=== PATIENT | female | born 2000 | race Hispanic/Latino ===

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

== ENCOUNTER 2022-07-13 15:22 | Observation (INO) | payer MEDICAID, OTHER ==
[~2022-07-13] VITALS: Ht 152.4 cm; Wt 65.8 kg
[2022-07-13] MEDS ORDERED: 0.9%NACL 1000ML 1,000 ML IV ONE (16:00)
[2022-07-13] MEDS ORDERED: ACETAMINOPHEN 500 MG TABLET PO ONE (16:00)
[2022-07-13 16:12] LABS: BASOPHILS % (AUTO) 0.2 % (0.0-5.0); EOSINOPHILS % (AUTO) 0.1 % (0.0-8.0); HEMATOCRIT 30.8 % (36-48); LYMPHOCYTES % (AUTO) 7.6 % (21.0-51.0); MEAN CORPUSCULAR HEMOGLOBIN 29.4 pg (27.0-33.0); MEAN CORPUSCULAR HGB CONC 34.7 g/dL (32.0-36.0); MEAN CORPUSCULAR VOLUME 84.6 fL (80-100); MONOCYTES % (AUTO) 7.8 % (3.0-13.0); NEUTROPHILS % (AUTO) 83.5 % (40.0-77.0); PLATELET COUNT (AUTO) 154 K/uL (130-400); RED BLOOD CELL COUNT(AUTO) 3.64 MIL/uL (4.00-5.50); RED CELL DISTRIBUTION WIDTH 14.5 % (11.0-15.5); WHITE BLOOD COUNT (AUTO) 13.1 K/uL (4.8-10.8)
[2022-07-13 16:13] LABS: APPEARANCE,URINE TURBID (CLEAR); BILIRUBIN,URINE NEGATIVE (NEGATIVE); COLOR,URINE YELLOW (YELLOW); GLUCOSE, URINE (UA) NEGATIVE (NEGATIVE); KETONES,URINE 20 mg/dL (NEGATIVE); LEUKOCYTE ESTERASE ,URINE 500 Leu/uL (NEGATIVE); NITRATE,URINE NEGATIVE (NEGATIVE); OCCULT BLOOD,URINE LARGE (NEGATIVE); PH,URINE 6.5 (5.0-8.0); PROTEIN,URINE 70 mg/dL (NEGATIVE)
[2022-07-13 16:29] LABS: ALBUMIN 2.9 g/dL (3.5-5.0); CREATININE 0.6 mg/dL (0.5-1.5); TOTAL PROTEIN, SERUM 7.4 g/dL (6.0-8.3)
[2022-07-13 16:36] LABS: APPEARANCE,URINE CLEAR (CLEAR); BILIRUBIN,URINE NEGATIVE (NEGATIVE); COLOR,URINE LIGHT-YELLOW (YELLOW); GLUCOSE, URINE (UA) NEGATIVE (NEGATIVE); KETONES,URINE NEGATIVE (NEGATIVE); LEUKOCYTE ESTERASE ,URINE NEGATIVE Leu/uL (NEGATIVE); NITRATE,URINE NEGATIVE (NEGATIVE); OCCULT BLOOD,URINE NEGATIVE (NEGATIVE); PH,URINE 6.5 (5.0-8.0); PROTEIN,URINE NEGATIVE (NEGATIVE); UROBILINOGEN,URINE 0.2 mg/dL (0.2-1.0)
[2022-07-13 16:37] LABS: POTASSIUM 2.9 mmol/L (3.5-5.1)
[2022-07-13 16:40] LABS: BACTERIA,URINE RARE /HPF (None Seen); MUCUS,URINE MOD LPF (None Seen); RBC,URINE >100 /HPF (0-1); SQUAMOUS EPITHELIAL CELL,UR MOD /HPF (0-2); WBC,URINE >100 /HPF (0-1); YEAST,URINE BUDDING RARE /HPF (None Seen)
[2022-07-13 16:48] LABS: RBC,URINE 0-1 /HPF (0-1); SQUAMOUS EPITHELIAL CELL,UR RARE /HPF (0-2)
[2022-07-13] MEDS ORDERED: CEFTRIAXONE 1G VIAL IVP ONE (17:00)
[2022-07-13] MEDS ORDERED: POTASSIUM BICARB/CIT AC 25 MEQ TABLET.EFF PO ONE (17:00)
[2022-07-13] MEDS ORDERED: POTASSIUM BICARB/CIT AC 25 MEQ TABLET.EFF ONE (17:03)
[2022-07-13] MEDS ORDERED: CEFTRIAXONE 1G VIAL ONE (17:03)
[2022-07-13] MEDS ORDERED: GENTAMICIN 80 MG/NS 100 ML PB 100 ML IV SCH (18:00)
[2022-07-13] MEDS ORDERED: LIDOCAINE PF 100MG/5ML (2%) SYRINGE 5ML ONE (18:26)
[2022-07-13] MEDS ORDERED: SUCCINYLCHOLINE CHLORIDE 20 MG/ML 10 ML VIAL ONE (18:26)
[2022-07-13] MEDS ORDERED: FENTANYL CITRATE PF 50 MCG/1 ML 2ML VIAL ONE ×2 (18:27→19:24)
[2022-07-13] MEDS ORDERED: MIDAZOLAM HCL 1 MG/ML 2ML VIAL ONE (18:27)
[2022-07-13] MEDS ORDERED: GLYCOPYRROLATE 1 MG/5 ML SYRINGE ONE (18:27)
[2022-07-13] MEDS ORDERED: ONDANSETRON 4MG INJ ONE (18:27)
[2022-07-13] MEDS ORDERED: DEXAMETHASONE SOD PHOSPHATE 10MG/ML 1ML VIAL ONE (18:27)
[2022-07-13] MEDS ORDERED: NEOSTIGMINE 5MG/5ML SYR IV ONE (18:27)
[2022-07-13] MEDS ORDERED: PROPOFOL 10 MG/ML 20ML VIAL IV ONE (18:27)
[2022-07-13] MEDS ORDERED: AMPICILLIN 1GM VIAL IV SCH (18:30)
[2022-07-13] MEDS: DEXTROSE 5 %-0.45 % NACL 1,000 ML IV SCH (18:30)
[2022-07-13] MEDS ORDERED: GENTAMICIN SULFATE/PF 10 MG/1 ML 2ML IV SCH (18:30)
[2022-07-13] MEDS ORDERED: CEFAZOLIN SODIUM 1 GM VIAL ONE (19:07)
[2022-07-13] MEDS ORDERED: OXYTOCIN 10 USP UNITS/ML ONE (19:32)
[2022-07-13] MEDS ORDERED: PHENYLEPHRINE HCL 10 MG/ML 1ML VIAL IV ONE (19:39)
[2022-07-13] MEDS ORDERED: AMPICILLIN 1GM+NS 50ML 50 ML IV SCH (20:00)
[2022-07-13] MEDS ORDERED: ACET325O5 PO (20:13)
[2022-07-13] MEDS ORDERED: PREN1TAB80 PO (20:13)
[2022-07-13] MEDS ORDERED: LACTATED RINGERS 1000ML IV PRN (20:30)
[2022-07-13] MEDS ORDERED: LACTATED RINGERS 1000ML 1,000 ML IV SCH (20:30)
[2022-07-13] MEDS ORDERED: MEPERIDINE-PF 25 MG/ML SYG ONE (20:36)
[2022-07-13] MEDS ORDERED: MEPERIDINE-PF 25 MG/ML SYG IVP PRN (21:30)
[2022-07-13] MEDS ORDERED: NALOXONE HCL 0.4 MG/1 ML ML IVP PRN (21:30)
[2022-07-13] MEDS ORDERED: IPRATROPIUM/ALBUTEROL SULFATE 3 ML SOLUTION IH PRN (21:30)
[2022-07-13] MEDS ORDERED: ONDANSETRON 4MG INJ IVP PRN (21:30)
[2022-07-13] MEDS ORDERED: RACEPINEPHRINE HCL 2.25% 0.5 ML NEB SOLN NEB PRN (21:30)
[2022-07-13] MEDS ORDERED: PROMETHAZINE HCL 25 MG/ML 1ML AMPULE IM PRN (21:30)
[2022-07-13] MEDS ORDERED: METOCLOPRAMIDE 10 MG/2 ML VIAL IVP PRN (21:30)
[2022-07-13] MEDS ORDERED: CALDOLOR 800MG+NS 250ML 250 ML IV SCH (22:00)
[2022-07-14] VITALS: BP 123/75
[2022-07-14] MEDS ORDERED: CEFAZOLIN SODIUM 2 GM VIAL IVP SCH (03:00)
[2022-07-14] MEDS: DEXTROSE 5 %-0.45 % NACL 1,000 ML IV SCH (03:01)
[2022-07-14] MEDS ORDERED: ACETAMINOPHEN 325 MG TAB ONE ×2 (03:07)
[2022-07-14 03:15] VITALS: BP 111/63
[2022-07-14] MEDS ORDERED: ACETAMINOPHEN 325 MG TAB PO PRN (03:30)
[2022-07-14 06:19] LABS: BASOPHILS % (AUTO) 0.1 % (0.0-5.0); HEMATOCRIT 26.2 % (36-48); LYMPHOCYTES % (AUTO) 8.5 % (21.0-51.0); MEAN CORPUSCULAR HEMOGLOBIN 29.5 pg (27.0-33.0); MEAN CORPUSCULAR VOLUME 86.8 fL (80-100); MONOCYTES % (AUTO) 4.2 % (3.0-13.0); NEUTROPHILS % (AUTO) 86.4 % (40.0-77.0); PLATELET COUNT (AUTO) 166 K/uL (130-400); RED BLOOD CELL COUNT(AUTO) 3.02 MIL/uL (4.00-5.50); RED CELL DISTRIBUTION WIDTH 14.8 % (11.0-15.5)
== END 2022-07-14 07:15 | disposition home or self-care (01) ==
LOC: EDH 15:22 → LDH 15:23 → UNDOADMOB 18:12 → LDH 18:12
PROVIDERS: ADMIT Obstetrics & Gynecology; ATTEND Obstetrics & Gynecology
DX: O36.4XX0 Maternal care for intrauterine death, not applicable or unspecified (principal); Z20.822 Contact with and (suspected) exposure to COVID-19; O46.91 Antepartum hemorrhage, unspecified, first trimester; O99.12 Other diseases of the blood and blood-forming organs and certain disorders involving the immune mechanism complicating childbirth; D72.829 Elevated white blood cell count, unspecified; O26.891 Other specified pregnancy related conditions, first trimester; R51.9 Headache, unspecified; R50.9 Fever, unspecified; O99.891 Other specified diseases and conditions complicating pregnancy; M54.9 Dorsalgia, unspecified; Z98.891 History of uterine scar from previous surgery; Z3A.10 10 weeks gestation of pregnancy
CPT/HCPCS: 59820; 96374; 99284; 80053; 84702; 85025 ×2; 86850; 86900; 86901; 87040 ×2; 87077; 87088; 87186; 87804 ×2; 83605; 81001 ×2; 81025; 36415 ×2; 87635; 76801; 96375; 84132; G0378 ×16; C9803; J3010 ×2; J0690 ×3; J3490; J1100; J2710; J0330; J2001; J0696; J2250; J2590; J2704; J2405; J2175; J2370; J7120; J0290; J1580

== ENCOUNTER 2024-10-28 22:31 | Observation (INO) | payer BC, MEDICAID ==
[~2024-10-28] VITALS: Ht 152.4 cm; Wt 69.4 kg
[~2024-10-28 22:31] MED LIST: ACET325O5 PO; PREN1TAB80 PO
[2024-10-28] MEDS: 0.9%NACL 1000ML 1,000 ML IV SCH (22:50)
[2024-10-28] MEDS: ondanSETRON 4MG INJ ONE (22:50)
[2024-10-28] MEDS: FAMOTIDINE 20MG VIAL IV ONE ×2 (22:50)
[2024-10-28] MEDS: ondanSETRON 4MG INJ IVP ONE (22:50)
[2024-10-28 22:56] LABS: BASOPHILS # (AUTO) 0.06 K/uL (0.00-0.20); BASOPHILS % (AUTO) 0.3 % (0.0-5.0); EOSINOPHILS % (AUTO) 1.1 % (0.0-8.0); HEMATOCRIT 37.8 % (36-48); IMMATURE GRANULOCYTE ABSOLUTE 0.11 K/uL (0-1); LYMPHOCYTES # (AUTO) 1.2 K/uL (1.0-4.8); LYMPHOCYTES % (AUTO) 6.5 % (21.0-51.0); MEAN CORPUSCULAR HEMOGLOBIN 31.5 pg (27.0-33.0); MEAN CORPUSCULAR HGB CONC 33.1 g/dL (32.0-36.0); MEAN CORPUSCULAR VOLUME 95.2 fL (79-99); MONOCYTES # (AUTO) 0.7 K/uL (0.1-1.0); MONOCYTES % (AUTO) 3.9 % (3.0-13.0); NEUTROPHILS # (AUTO) 16.6 K/uL (1.8-7.7); NEUTROPHILS % (AUTO) 87.6 % (40.0-77.0); PLATELET COUNT (AUTO) 295 K/uL (130-400); RED BLOOD CELL COUNT(AUTO) 3.97 MIL/uL (4.00-5.50); RED CELL DISTRIBUTION WIDTH 12.9 % (11.0-15.5); WHITE BLOOD COUNT (AUTO) 18.9 K/uL (4.8-10.8)
[2024-10-28 23:07] LABS: CARBON DIOXIDE 25 mmol/L (21-32); CHLORIDE 101 mmol/L (101-111); CREATININE 0.7 mg/dL (0.5-1.0); GLOMERULAR FILTR. RATE CALC 125 mL/min (>90); GLUCOSE,RANDOM 109 mg/dL (70-105); POTASSIUM 3.2 mmol/L (3.5-5.1); SODIUM SERUM 138 mmol/L (136-145); UREA NITROGEN, BLOOD 8 mg/dL (7-18)
[2024-10-28 23:18] LABS: ALANINE AMINOTRANSFERASE 23 U/L (12-78); ALBUMIN 3.8 g/dL (3.5-5.0); ASPARTATE AMINOTRANSFERASE 13 U/L (10-37); BILIRUBIN,DIRECT < 0.1 mg/dL (0.0-0.3); BILIRUBIN,TOTAL 0.2 mg/dL (0.2-1.0); HCG,QUANTITATIVE 1 mIU/mL (0-5); TOTAL PROTEIN, SERUM 7.6 g/dL (6.0-8.3)
[2024-10-28] MEDS ORDERED: IOHEXOL-350 75 ML VIAL IV ONE (23:50)
[2024-10-28] MEDS: morPHINE 2 MG SYG IVP ONE (23:51)
[2024-10-28] MEDS: HALOPERIDOL INJ 5 MG/ML VIAL IV ONE (23:51)
[2024-10-29] VITALS (24 sets, daily range): BP systolic 105–130; BP diastolic 55–85; PULSE 81–122; RESP 15–20; TEMP 97.4–98.9; O2SAT 98–99
--- NOTE | 2024-10-29 00:50 | HMCIMG ---
CT ABDOMEN/PELVIS W/CONTRAST HISTORY: Abdominal pain COMPARISON: None TECHNIQUE: Multiple sequential axial images of the abdomen and pelvis were obtained from the dome of the diaphragm through symphysis pubis. Patient was not given contrast through intravenous route. Oral contrast was not given. FINDINGS: No pleural effusion is seen bilaterally. There is no evidence of parenchymal disease or pulmonary nodule of the visualized lower lungs. Degenerative changes of the thoracolumbar spine are present. The heart is not enlarged. The liver, spleen, adrenal glands and pancreas are unremarkable. There is no evidence of hydronephrosis bilaterally. No evidence of renal stone is seen. Fecal material is seen in the colon. There are normal size retroperitoneal and mesenteric lymph nodes. No ascites is seen. Appendix is dilated measuring 10 mm. Acute appendicitis cannot be excluded. Clinical correlation is recommended. Pelvic sidewalls are symmetric bilaterally. Bladder is well distended without wall thickening. IMPRESSION: 1. Appendix is dilated measuring 10 mm. Acute appendicitis cannot be excluded. Clinical correlation is recommended. CT was performed with one or more following dose reduction techniques: automated exposure control, adjustment of the mA and kv according to patient's size, or use of a iterative reconstruction technique.
--- NOTE | 2024-10-29 00:56 | ERN ---
General Chief Complaint: Abdominal Pain Stated Complaint: INTERMITTENT UPPER ABD X 2 WEEKS,N/V TODAY Time Seen by MD: 22:45 Time Seen by Midlevel: 22:45 Source: patient History of Present Illness Initial Comments Patient is a 24-year-old female with no significant past medical history presenting to the emergency department with diffuse abdominal pain that has been progressively worsening over the last two days. Associated symptoms include nausea and vomiting. No other symptoms reported. Denies any drug and alcohol use. Allergies: Coded Allergies: No Known Drug Allergies (Unverified Allergy, Unknown, 07/13/22) Home Meds Reported Medications Vits W-Ca,Fe,FA(<1Mg) ( Vitamins) 1 Each Tablet, 1 EACH PO DAILY, TAB 07/13/22 Acetaminophen (Acetaminophen) 325 Mg/10.15 Ml Oral.susp, 325 MG PO AD PRN for ABDOMINAL PAIN, ML 07/13/22 Past Medical History Past Medical History: No Pertinent History Past Surgical History: Female( History) : 3 Para: 1 ROS Dictation CONSTITUTIONAL: Negative except for HPI HEAD/FACE: Negative except for HPI EENT: Negative except for HPI RESPIRATORY: Negative except for HPI GASTROINTESTINAL/ABDOMINAL: Negative except for HPI GENITOURINARY: Negative except for HPI MUSCULOSKELETAL: Negative except for HPI INTEGUMENTARY: Negative except for HPI NEUROLOGICAL/PSYCH: Negative except for HPI HEMATOLOGIC/LYMPHATIC: Negative except for HPI All Systems Negative, Except as noted above. 13 point review of systems assessed and all negative except for above. Physical Exam Physical Exam Dictation Vital Signs reviewed General Appearance: Alert, oriented x 3, mild distress, actively vomiting Head and Face: non-traumatic. Eyes: PERRL, pink conjunctivas, eyelid no trauma, anterior chamber with arcus senilis. Ears: Pinnas intact and no signs of trauma or erythema ear canals clear and no discharge TM no erythema Nose: No discharge, no bleeding. Oropharynx: Mouth normal, tongue pink, pharynx clear,no erythema, tonsils no exudates, no abscesses noted, mucous membrane moist Neck: Supple, non-tender, no thyromegaly, no masses, no JVD, no bruits Breast:Deferred Chest:No tenderness, no crepitus, no paradoxical movement, no retractions Lungs:Clear, well-ventilated, symmetric, no rales, no wheezing, no rhonchi, no stridor, good breath sounds bilaterally Heart: Tachycardic, regular rhythm, no murmur, no gallops Vascular: no peripheral edema, Abdomen: Soft, positive bowel sounds, nondistended, no guarding, Right lower quadrant abdominal tenderness, no rebound, no masses no hepatomegaly, no splenomegaly, no Anne's sign, no hernias. Rectal: Deferred Genital: Deferred Neurological: Normal speech, motor function intact, sensory function intact Musculoskeletal: Neck nontender, full range of motion, back nontender, full range of motion, Extremities: nontender, full range of motion Skin: Color pink, dry, no turgor, no rash, no lacerations, no abrasions, no contusions. Lymphatic: Deferred Results Laboratory and Microbiology Lab and Micro Result Laboratory Tests Test 10/28/24 22:48 White Blood Count 18.9 K/uL (4.8-10.8) H Red Blood Count 3.97 MIL/uL (4.00-5.50) L Hemoglobin 12.5 g/dL (12.0-16.0) Hematocrit 37.8 % (36-48) Mean Corpuscular Volume 95.2 fL (79-99) Mean Corpuscular Hemoglobin 31.5 pg (27.0-33.0) Mean Corpuscular Hemoglobin Concent 33.1 g/dL (32.0-36.0) Red Cell Distribution Width 12.9 % (11.0-15.5) Platelet Count 295 K/uL (130-400) Mean Platelet Volume 10.1 fL (7.5-10.5) Immature Granulocyte % (Auto) 0.6 % (0-1) Neutrophils (%) (Auto) 87.6 % (40.0-77.0) H Lymphocytes (%) (Auto) 6.5 % (21.0-51.0) L Monocytes (%) (Auto) 3.9 % (3.0-13.0) Eosinophils (%) (Auto) 1.1 % (0.0-8.0) Basophils (%) (Auto) 0.3 % (0.0-5.0) Neutrophils # (Auto) 16.6 K/uL (1.8-7.7) H Lymphocytes # (Auto) 1.2 K/uL (1.0-4.8) Monocytes # (Auto) 0.7 K/uL (0.1-1.0) Eosinophils # (Auto) 0.20 K/uL (0.00-0.70) Basophils # (Auto) 0.06 K/uL (0.00-0.20) Absolute Immature Granulocyte (auto 0.11 K/uL (0-1) Nucleated Red Blood Cells 0.0 % (0.0-0.19) White Cell Morphology Comment See comments Sodium Level 138 mmol/L (136-145) Potassium Level 3.2 mmol/L (3.5-5.1) L Chloride Level 101 mmol/L (101-111) Carbon Dioxide Level 25 mmol/L (21-32) Blood Urea Nitrogen 8 mg/dL (7-18) Creatinine 0.7 mg/dL (0.5-1.0) Glomerular Filtration Rate Calc 125 mL/min (>90) Random Glucose 109 mg/dL (70-105) H Total Calcium 8.8 mg/dL (8.5-10.1) Total Bilirubin 0.2 mg/dL (0.2-1.0) Direct Bilirubin < 0.1 mg/dL (0.0-0.3) Aspartate Amino Transf (AST/SGOT) 13 U/L (10-37) Alanine Aminotransferase (ALT/SGPT) 23 U/L (12-78) Alkaline Phosphatase 73 U/L (50-136) Total Protein 7.6 g/dL (6.0-8.3) Albumin 3.8 g/dL (3.5-5.0) Lipase 29 U/L (16-77) Human Chorionic Gonadotropin, Quant 1 mIU/mL (0-5) Labs Reviewed?: Yes MDM MDM: Differential diagnosis: Acute appendicitis, pancreatitis, acute cholecystitis, Rationale: Tests considered and ordered secondary to shared decision making include: Previous outside records reviewed: Old ER visits. Risk of complication and/or morbidity or mortality of patient management: None Medications-Per medication reconciliation Need for hospitalization: Patient does meet criteria for hospitalization. Need for emergency major/minor surgery: No There are no social concerns with this patient. Prescription drug management Prescriptions will include symptomatic care Patient's prior external medical records from other ER visits were reviewed by me as indicated. Prior testing and results from previous visits were reviewed. Prior tests were taken into account with medical decision making and resource utilization, independent historian/historians were used to obtain complete medical history. I independently interpreted the test that were performed, results were reviewed by me and considered findings on radiology if ordered. Medical management and examination interpretation discussions were had by me with other qualified healthcare professionals as indicated for the patient's care. ED Course Orders Procedure Category Date Status Time Cbc With Differential LAB 10/28/24 Complete 22:42 Basic Metabolic Panel LAB 10/28/24 Complete 22:42 Lipase LAB 10/28/24 Complete 22:42 Hcg,Quantitative LAB 10/28/24 Complete 22:42 Urinalysis Profile LAB 10/28/24 Logged 22:42 Ondansetron 4mg Inj PHA 10/28/24 Complete (Zofran 4mg Inj) 23:00 Hepatic Function Panel LAB 10/28/24 Complete 22:42 Drug Screen Urine LAB 10/28/24 Logged 22:42 0.9%Nacl 1000ml (Ns PHA 10/28/24 In Process 1000ml) 23:00 Famotidine 20mg Vial PHA 10/28/24 Complete (Pepcid 20mg Vial) 23:00 Ondansetron 4mg Inj PHA 10/28/24 Complete (Zofran 4mg Inj) 22:44 Famotidine 20mg Vial PHA 10/28/24 Complete (Pepcid 20mg Vial) 22:45 Ct Abdomen/Pelvis CT 10/28/24 Resulted W/Contrast 23:36 Morphine 2mg Syg PHA 10/29/24 Complete (Morphine 2mg Syg) 00:00 Haloperidol Inj PHA 10/29/24 Complete (Haldol Inj) 00:00 Iohexol (Omnipaque) PHA 10/28/24 Complete 23:50 Hydromorphone 0.5mg PHA 10/29/24 Verified Syg (Dilaudid 0.5mg 01:00 Zosyn 3.375gm+Ns 50ml PHA 10/29/24 Verified (Zosyn 3.375gm+Ns 01:00 Current Medications Medications (Trade) Dose Ordered Sig/Trent Route PRN Reason Start Time Stop Time Status Last Admin Dose Admin Famotidine (Pepcid 20mg Vial) 20 mg ONCE ONCE IV 10/28/24 23:00 10/28/24 23:01 DC 10/28/24 22:50 Famotidine (Pepcid 20mg Vial) 20 mg STK-MED ONCE IV 10/28/24 22:45 10/28/24 22:45 DC Haloperidol Lactate (Haldol Inj) 5 mg ONCE ONCE IV 10/29/24 00:00 10/29/24 00:01 DC 10/28/24 23:51 Iohexol (Omnipaque) 75 ml STK-MED ONCE IV 10/28/24 23:50 10/28/24 23:50 DC Morphine Sulfate (morPHINE 2MG SYG) 2 mg ONCE ONCE IVP 10/29/24 00:00 10/29/24 00:01 DC 10/28/24 23:51 Ondansetron HCl (zoFRAN 4MG INJ) 4 mg ONCE ONCE IVP 10/28/24 23:00 10/28/24 23:01 DC 10/28/24 22:50 Ondansetron HCl (zoFRAN 4MG INJ) 4 mg STK-MED ONCE .ROUTE 10/28/24 22:44 10/28/24 22:45 DC Sodium Chloride 1,000 ml @ 0 mls/hr Q0M IV 10/28/24 23:00 11/27/24 22:59 10/28/24 22:50 Vital Signs Date Time Temp Pulse Resp B/P (MAP) Pulse Ox O2 Delivery O2 Flow Rate FiO2 10/28/24 23:44 98.8 98 20 127/84 99 Room Air* 0 21 10/28/24 22:34 99.3 104 18 133/89 99 Room Air 0 10/28/24 22:32 99.3 104 18 133/89 99 Room Air* [address] [address] IMAGING REPORT Signed PATIENT: JASIEL ORNELAS MR#: [id number] : 2000 SEX: F AGE: 24 LOCATION: [facility] ORDER 36 STATUS: REG ER REPORT#: [id number] SERVICE 35 REASON: mid epigastric abd pain/leukocytosis/intractable vomiting ORDERING PHYSICIAN: TAMIA HOOD PROCEDURE: ABD PEL W - CT ABDOMEN/PELVIS W/CONTRAST CT ABDOMEN/PELVIS W/CONTRAST HISTORY: Abdominal pain COMPARISON: None TECHNIQUE: Multiple sequential axial images of the abdomen and pelvis were obtained from the dome of the diaphragm through symphysis pubis. Patient was not given contrast through intravenous route. Oral contrast was not given. FINDINGS: No pleural effusion is seen bilaterally. There is no evidence of parenchymal disease or pulmonary nodule of the visualized lower lungs. Degenerative changes of the thoracolumbar spine are present. The heart is not enlarged. The liver, spleen, adrenal glands and pancreas are unremarkable. There is no evidence of hydronephrosis bilaterally. No evidence of renal stone is seen. Fecal material is seen in the colon. There are normal size retroperitoneal and mesenteric lymph nodes. No ascites is seen. Appendix is dilated measuring 10 mm. Acute appendicitis cannot be excluded. Clinical correlation is recommended. Pelvic sidewalls are symmetric bilaterally. Bladder is well distended without wall thickening. IMPRESSION: 1. Appendix is dilated measuring 10 mm. Acute appendicitis cannot be excluded. Clinical correlation is recommended. CT was performed with one or more following dose reduction techniques: automated exposure control, adjustment of the mA and kv according to patient's size, or use of a iterative reconstruction technique. DICTATED BY: ANDREAS WHITE MD DATE: 10/29/246 ELECTRONICALLY SIGNED BY: ANDREAS WHITE MD DATE: 10/29/24 0050 DX & DISP Disposition: Inpatient Decision to Admit Date: Oct 29, 2024 Departure Impression: Primary Impression: Acute appendicitis Additional Impression: Leukocytosis Condition: Stable Referrals: SELF,REFERRAL (PCP) I have reviewed the case, and I agree with, Diagnosis and Plan I performed the substantive portion of the visit. I have reviewed and personally made and approve the management plan that is documented in the note by myself or the FIDELINA. I acknowledge for responsibility for the patient's management plan. TAMIA HOOD Oct 29, 2024 00:56
--- NOTE | 2024-10-29 01:12 | HP ---
[facility] HISTORY AND PHYSICAL Date of Service: Oct 29, 2024 Time of Service: 01:12 Attending/supervising physicians: Dr. Michaels and Dr. Romero HISTORY OF PRESENT ILLNESS: Patient is a 24-year-old female with no significant past medical history who presented to [facility] for evaluation of diffuse abdominal pain that has been progressively worsening over the last two days. Associated symptoms include nausea and vomiting. No other symptoms reported. Patient denied any drug and alcohol use. CT abdomen and pelvis with contrast: 1. Appendix is dilated measuring 10 mm. Acute appendicitis cannot be excluded. Clinical correlation is recommended. UA negative for leuk EST and nitrites. Positive for ketones and protein. Labs: WBC 18.9 K3.2, UDS: positive for opiates and marijuana. ED provider request patient be admitted with the diagnosis of acute appendicitis and leukocytosis. I assessed the patient in room 413. Patient Q comfortable, in no distress. Informed the patient and significant other at bedside of labs, diagnostics, and plan of care. Plan and assessment are listed below. REVIEW OF SYSTEMS 12-point ROS reviewed with patient. All positives are listed above. Otherwise negative, noncontributory, or non-pertinent. PAST MEDICAL HISTORY: Obesity, three para one PAST SURGICAL HISTORY: PAST SOCIAL HISTORY: Negative FAMILY HISTORY: Negative Coded Allergies: No Known Drug Allergies (Unverified Allergy, Unknown, 07/13/22) PHYSICAL EXAM GENERAL APPEARANCE: The patient is awake, alert, and oriented, in no acute cardiopulmonary distress. NEUROLOGICAL: Cranial nerves II-XII grossly intact. Motor is 5/5 in bilateral upper and lower extremities proximal to distal. No sensory deficits. HEENT: Face is symmetric. Pupils are equal and reactive. Extraocular movements are intact. NECK: Supple. No JVD. No thyromegaly. No submental, submandibular, pre- /postauricular, occipital or supraclavicular lymphadenopathy. CHEST: Normal chest expansion. No Telemetry. LUNGS: Absence of any rales, rhonchi or any wheezing. CARDIOVASCULAR: Regular. S1 and S2 normal. No appreciable rubs, murmurs or gallops. ABDOMEN: Obese, Soft, nontender, and nondistended. There is no rebound, voluntary guarding, or rigidity. : Deferred. No Clark. EXTREMITIES: Non-edematous and not cyanotic. No clubbing. Good capillary refill. SKIN: No skin breakdown. Vital Sign (Last 24 Hours) 10/28/24 23:44 Temp 98.8 Pulse 98 Resp 20 B/P (MAP) 127/84 Pulse Ox 99 O2 Delivery Room Air* O2 Flow Rate 0 FiO2 21 LABS: Laboratory: Test 10/28/24 22:48 Range/Units White Blood Count 18.9 H 4.8-10.8 K/uL Red Blood Count 3.97 L 4.00-5.50 MIL/uL Hemoglobin 12.5 12.0-16.0 g/dL Hematocrit 37.8 36-48 % Mean Corpuscular Volume 95.2 79-99 fL Mean Corpuscular Hemoglobin 31.5 27.0-33.0 pg Mean Corpuscular Hemoglobin Concent 33.1 32.0-36.0 g/dL Red Cell Distribution Width 12.9 11.0-15.5 % Platelet Count 295 130-400 K/uL Mean Platelet Volume 10.1 7.5-10.5 fL Immature Granulocyte % (Auto) 0.6 0-1 % Neutrophils (%) (Auto) 87.6 H 40.0-77.0 % Lymphocytes (%) (Auto) 6.5 L 21.0-51.0 % Monocytes (%) (Auto) 3.9 3.0-13.0 % Eosinophils (%) (Auto) 1.1 0.0-8.0 % Basophils (%) (Auto) 0.3 0.0-5.0 % Neutrophils # (Auto) 16.6 H 1.8-7.7 K/uL Lymphocytes # (Auto) 1.2 1.0-4.8 K/uL Monocytes # (Auto) 0.7 0.1-1.0 K/uL Eosinophils # (Auto) 0.20 0.00-0.70 K/uL Basophils # (Auto) 0.06 0.00-0.20 K/uL Absolute Immature Granulocyte (auto 0.11 0-1 K/uL Nucleated Red Blood Cells 0.0 0.0-0.19 % White Cell Morphology Comment See comments Sodium Level 138 136-145 mmol/L Potassium Level 3.2 L 3.5-5.1 mmol/L Chloride Level 101 101-111 mmol/L Carbon Dioxide Level 25 21-32 mmol/L Blood Urea Nitrogen 8 7-18 mg/dL Creatinine 0.7 0.5-1.0 mg/dL Glomerular Filtration Rate Calc 125 >90 mL/min Random Glucose 109 H 70-105 mg/dL Total Calcium 8.8 8.5-10.1 mg/dL Total Bilirubin 0.2 0.2-1.0 mg/dL Direct Bilirubin < 0.1 0.0-0.3 mg/dL Aspartate Amino Transf (AST/SGOT) 13 10-37 U/L Alanine Aminotransferase (ALT/SGPT) 23 12-78 U/L Alkaline Phosphatase 73 50-136 U/L Total Protein 7.6 6.0-8.3 g/dL Albumin 3.8 3.5-5.0 g/dL Lipase 29 16-77 U/L Human Chorionic Gonadotropin, Quant 1 0-5 mIU/mL Current Medications Medications (Trade) Dose Ordered Sig/Trent Route PRN Reason Start Time Stop Time Status Last Admin Dose Admin Sodium Chloride 1,000 ml @ 0 mls/hr Q0M IV 10/28/24 23:00 11/27/24 22:59 10/28/24 22:50 1,000 MLS/HR DIAGNOSTICS / RADIOLOGY: [ ] ASSESSMENT: Acute appendicitis (appendix is dilated measuring 10 mm) Acute intractable nausea, etiology cannabinoid hyperemesis syndrome vs intraabdominal infection Acute abdominal pain, POA Leukocytosis, POA Acute dehydration, POA Hypokalemia, POA Hyperglycemia, POA Proteinuria, POA Obesity, POA, bmi 29.9 PLAN: And patient to medical-surgical floor. -Continue antibiotic therapy: Zosyn IV piggyback -Consult general surgeon. -PRN medications for: Pain management, fever, hypertension, N/V, constipation. -Glucometer checks AC & HS needed with insulin regular sliding scale coverage as needed. -Blood pressure checks every 4 hours and as needed. -Reconcile home medications once available. - Monitor renal and liver function. -Monitor electrolytes and replace PRN -AM labs: CBC, BMP, mag, phos, TSH, A1C. -GI and DVT prophylaxis - ADVANCED CARE PLANNING 1. Which of the following were discussed? Hospice Care - No Therapeutic options - Yes Advance Directives - Yes Other discussions - 2. Discussed with who? Patient 3. Voluntary nature of this service was explained to the patient? Yes 4. Amount of time spent - __ over 35 minutes. 5. Reviewed by Physician? (if this service was performed by NPP) Yes ATTESTATION BY PHYSICIAN I have seen and examined the patient. I reviewed the documentation, medical decision making, and treatment plan as noted by the advanced practice provider above. I agree with the findings and plan of care. MELVA PEREZ NETWORKING TECHNOLOGY INSTRUCTOR Oct 29, 2024 01:12
[2024-10-29] MEDS ORDERED: doCUSate SODIUM 100 MG CAP PO PRN (01:30)
[2024-10-29] MEDS ORDERED: PROMETHAZINE HCL 25 MG/ML 1ML AMPULE IM PRN (01:30)
[2024-10-29] MEDS ORDERED: acetaMINOPHEN 650 MG SUPPOSITORY RC PRN (01:30)
[2024-10-29] MEDS ORDERED: ondanSETRON 4MG INJ IVP PRN (01:30)
[2024-10-29] MEDS ORDERED: hydrALAZine 20MG/ML VIAL IV PRN (01:30)
[2024-10-29] MEDS ORDERED: TEMAZepam 15 MG CAPSULE PO PRN (01:30)
[2024-10-29] MEDS ORDERED: acetaMINOPHEN 325 MG TAB PO PRN (01:30)
[2024-10-29] MEDS ORDERED: LACTULOSE 20 GM/30 ML UDCUP PO PRN (01:30)
[2024-10-29] MEDS: ZOSYN 3.375GM +NS 50ML IV ONE (01:34)
[2024-10-29] MEDS: hydroMORPHone 0.5 MG SYG (0.5MG/0.5ML) IVP ONE (01:34)
[2024-10-29] MEDS: LACTATED RINGERS 1000ML 1,000 ML IV SCH (01:35)
--- NOTE | 2024-10-29 01:49 | NUR ---
Received report from ER
--- NOTE | 2024-10-29 02:11 | NUR ---
Patient arrived to the floor via stretcher, alert and oriented x4, c/o of pain to right upper quadrant, partner at bedside.
[2024-10-29 02:54] LABS: ADD UA MICROSCOPIC YES; APPEARANCE,URINE CLEAR (CLEAR); BILIRUBIN,URINE NEGATIVE (NEGATIVE); COLOR,URINE COLORLESS (YELLOW); GLUCOSE, URINE (UA) NEGATIVE (NEGATIVE); KETONES,URINE 5 mg/dL (NEGATIVE); LEUKOCYTE ESTERASE ,URINE NEGATIVE Leu/uL (NEGATIVE); NITRATE,URINE NEGATIVE (NEGATIVE); OCCULT BLOOD,URINE NEGATIVE (NEGATIVE); PH,URINE 7.5 (5.0-8.0); PROTEIN,URINE 10 mg/dL (NEGATIVE); UROBILINOGEN,URINE 0.2 mg/dL (0.2-1.0)
[2024-10-29 02:55] LABS: BACTERIA,URINE RARE /HPF (None Seen); RBC,URINE 0-1 /HPF (0-1); SQUAMOUS EPITHELIAL CELL,UR RARE /HPF (0-2)
[2024-10-29 02:59] LABS: AMPHET/METH SCREEN,URINE NEGATIVE (NEGATIVE); BARBITURATE SCREEN, URINE NEGATIVE (NEGATIVE); BENZODIAZEPINES SCREEN,URINE NEGATIVE (NEGATIVE); CANNABINOID SCREEN,URINE POSITIVE (NEGATIVE); COCAINE SCREEN,URINE NEGATIVE (NEGATIVE); OPIATE SCREEN,URINE POSITIVE (NEGATIVE); PHENCYCLIDINE SCREEN,URINE NEGATIVE (NEGATIVE)
[2024-10-29] MEDS: hydroMORPHone 0.5 MG SYG (0.5MG/0.5ML) IVP PRN (04:51)
[2024-10-29] MEDS ORDERED: DEXTROSE 50%-WATER 50 ML DISP.SYRIN IV PRN (07:30)
[2024-10-29] MEDS ORDERED: PoTASSium chl 10% ELIXIR 20MEQ 20 MEQ/15 ML UDCUP PO PRN (07:30)
[2024-10-29] MEDS ORDERED: GLUCAGON 1MG KIT 1 MG ML IM PRN (07:30)
[2024-10-29] MEDS ORDERED: PoTASSium chloRIDE 20MEQ ER 20 MEQ ERTAB PO PRN (07:30)
[2024-10-29] MEDS ORDERED: MAGNESIUM 2GM PREMIX 50ML 50 ML IV PRN (07:30)
[2024-10-29] MEDS ORDERED: PoTASSium chloRIDE 20MEQ/100ML 100 ML IV PRN (07:30)
[2024-10-29 07:49] LABS: HEMATOCRIT 38.1 % (36-48); MEAN CORPUSCULAR HEMOGLOBIN 31.1 pg (27.0-33.0); MEAN CORPUSCULAR HGB CONC 32.3 g/dL (32.0-36.0); MEAN CORPUSCULAR VOLUME 96.2 fL (79-99); RED BLOOD CELL COUNT(AUTO) 3.96 MIL/uL (4.00-5.50); RED CELL DISTRIBUTION WIDTH 12.9 % (11.0-15.5)
[2024-10-29 07:58] LABS: CREATININE 0.7 mg/dL (0.5-1.0); POTASSIUM 3.9 mmol/L (3.5-5.1)
[2024-10-29 08:03] LABS: ALBUMIN 3.4 g/dL (3.5-5.0); BILIRUBIN,TOTAL 0.5 mg/dL (0.2-1.0); MAGNESIUM 1.8 mg/dL (1.80-2.40); TOTAL PROTEIN, SERUM 7.2 g/dL (6.0-8.3)
[2024-10-29 08:08] LABS: SARS-CoV-2, RNA, NAAT NEGATIVE SARS CoV-2 (NEGATIVE)
[2024-10-29 08:12] LABS: INFLUENZA TYPE A Negative For Type A (NEGATIVE); INFLUENZA TYPE B Negative For Type B (NEGATIVE)
[2024-10-29] MEDS ORDERED: BUPIvacaine/PF 0.5% 30ML VIAL ONE (09:12)
--- NOTE | 2024-10-29 09:14 | CONS ---
HISTORY OF PRESENT ILLNESS: The patient is a 24-year-old, female complaining of abdominal pain on and off for two months. She states this pain started about two days ago and increased in intensity, now localized to the right lower quadrant. PAST MEDICAL HISTORY: The patient has no significant past medical history. PAST SURGICAL HISTORY: Only significant for . ALLERGIES: She has no known drug allergies. PHYSICAL EXAMINATION: GENERAL: She is awake, alert, and oriented, in no acute distress. VITAL SIGNS: T-max is 99.3. T-now is afebrile. CHEST: Clear. HEART: Regular rate and rhythm. ABDOMEN: Soft but tender with localized guarding in the right lower quadrant. She has positive decreased bowel sounds. LABORATORY DATA: White count is 18, hematocrit is 38, platelets are 255. SMA-7 is unremarkable. Beta is negative. IMAGING DATA: CAT scan of the abdomen is consistent with dilated appendix, 10 mm, acute appendicitis cannot be excluded. PLAN: Laparoscopic appendectomy. TID: [id number] RECEIPT: [id number]
[2024-10-29] MEDS: ZOSYN 3.375GM +NS 50ML IVPB ONE (10:00)
[2024-10-29] MEDS ORDERED: 0.9%NACL 50ML IV SCH (10:00)
[2024-10-29] MEDS: ZOSYN 3.375GM +NS 50ML IVPB SCH (10:00)
[2024-10-29] MEDS ORDERED: MIDAZOLAM HCL 1 MG/ML 2ML VIAL ONE (10:02)
[2024-10-29] MEDS ORDERED: proPOFol 10 MG/ML 20ML VIAL IV ONE (10:02)
[2024-10-29] MEDS ORDERED: FENTanyl CITRate PF 50 MCG/1 ML 2ML VIAL ONE ×2 (10:02→10:57)
[2024-10-29] MEDS ORDERED: rocuRONium bROMide 10MG/1ML 5ML VL ONE (10:08)
[2024-10-29] MEDS ORDERED: MEPERIDINE-PF 25 MG/ML SYG ONE (10:30)
--- NOTE | 2024-10-29 11:05 | PRN ---
OPERATIVE REPORT DATE OF SERVICE: [10/29/2024 ] PREOPERATIVE DIAGNOSIS: Acute appendicitis. POSTOPERATIVE DIAGNOSIS: Acute appendicitis. PROCEDURE PERFORMED: Laparoscopic appendectomy. ESTIMATED BLOOD LOSS: Minimal. SPECIMEN: Appendectomy. ANESTHESIA: General. DESCRIPTION OF PROCEDURE: The patient was given preoperative antibiotics, was prepped and draped in normal sterile fashion. Incision was made for 1 cm in the umbilicus, bluntly dissected to the fascia. A Veress needle with negative aspiration and free flow of fluids insufflated to 15 mL of water using CO2 and a 10 mm trocar placed within. The remaining trocars, a 10 mm in the left lower quadrant and a 5-mm in the suprapubic area were placed under direct visualization. The appendix was noted to be acutely inflamed and this was grasped with an Allis. The mesentery was noted to be inflamed as well. The base of the appendix was dissected , the base of the appendix was doubly clipped _ around the base. The mesentery was divided between clips and amputated. The appendix was then removed, placed in Endobag and brought out through the lateral port. Trocars were replaced. The area was irrigated, hemostasis ensured. The trocars were replaced. The larger incisions were closed with interrupted Vicryl sutures. Leivasy and Marcaine were used for the skin. The patient tolerated procedure. ESEQUIEL GAMEZ MD Oct 29, 2024 11:05
[2024-10-29] MEDS ORDERED: ACET-2079 PO (11:06)
[2024-10-29] MEDS ORDERED: dexaMETHasone SOD PHOSPHATE 10MG/ML 1ML VIAL ONE (11:12)
--- NOTE | 2024-10-29 11:55 | NUR ---
PATIENT ARRIVED BACK TO BED, AAOX 4, SLIGHT DROWSY, RESTING COMFORTABLE. CALL LIGHT WITHIN REACH, BED AT LOWEST POSITION. SCD'S APPLIED, ON ROOM AIR OXYGEN SATURATION 97%.
[2024-10-29] MEDS: SUGAMMADEX SODIUM 200 MG/2 ML VIAL IV ONE (12:01)
[2024-10-29] MEDS: acetaMINOPHEN 100 ML ONE (12:01)
--- NOTE | 2024-10-29 15:15 | NUR ---
PATIENT WALKING IN ROOM TO RESTROOM, PASSING GAS, DENIES ANY DISCOMFORT, AND TOLERATED FOOD.
--- NOTE | 2024-10-29 16:19 | DS ---
Discharge Summary Hospital Course Summary: Patient was a 24-year-old female who was admitted with abdominal pain that was diagnosed on CT imaging to be acute appendicitis. General surgery was consulted and patient underwent laparoscopic appendectomy after which she felt markedly better. She desired to go home and was discharged in a stable condition. She did have leukocytosis and was sent home on antibiotics. She has a close follow up with surgery within a week Line Out Man(s): General surgery Procedure(s): Laparoscopic appendectomy Assessment/Plan: ASSESSMENT: Acute appendicitis (appendix is dilated measuring 10 mm) Acute intractable nausea, etiology cannabinoid hyperemesis syndrome vs intraabdominal infection Acute abdominal pain, POA Leukocytosis, POA Acute dehydration, POA Hypokalemia, POA Hyperglycemia, POA Proteinuria, POA Obesity, POA, bmi 29.9 - Home Medications: Active Scripts Acetaminophen with Codeine (Acetaminophen-Cod #3 Tablet) 300 Mg-30 Mg Tablet, 1 EACH PO Q4HPRN, #20 TAB Prov:ESEQUIEL GAMEZ MD 10/29/24 Reported Medications Vits W-Ca,Fe,FA(<1Mg) ( Vitamins) 1 Each Tablet, 1 EACH PO DAILY, TAB 07/13/22 Acetaminophen (Acetaminophen) 325 Mg/10.15 Ml Oral.susp, 325 MG PO AD PRN for ABDOMINAL PAIN, ML 07/13/22 Time spent arranging discharge: 31-60 minutes RESHMA FLORIAN MD Oct 29, 2024 16:19
[2024-10-29] MEDS ORDERED: AMOX-426 PO (16:21)
--- NOTE | 2024-10-29 18:37 | NUR ---
PATIENT DISCHARGE HOME VIA PERSONAL VEHICLE WITH . IV REMOVED INTACT. ALL QUESTIONS AND CONCERNS ANSWERED..
== END 2024-10-29 19:00 | disposition home or self-care (01) ==
LOC: EDH 22:31 → INTOOBSV 22:32 → EDHIP 22:32 → 4CH 10-29 02:05
PROVIDERS: ADMIT Internal Medicine; ATTEND Internal Medicine
DX: K35.80 Unspecified acute appendicitis (principal); Z20.822 Contact with and (suspected) exposure to COVID-19; R11.2 Nausea with vomiting, unspecified; E66.9 Obesity, unspecified; E86.0 Dehydration; E87.6 Hypokalemia; K59.00 Constipation, unspecified; I10 Essential (primary) hypertension; D72.829 Elevated white blood cell count, unspecified; R73.9 Hyperglycemia, unspecified; R80.9 Proteinuria, unspecified; Z68.29 Body mass index [BMI] 29.0-29.9, adult; Z98.890 Other specified postprocedural states; Z79.899 Other long term (current) drug therapy
CPT/HCPCS: 96375 ×2; 99285; 80076; 80048; 84702; 83690; 85025; 36415 ×2; 74177; 44970; 83735; 80053; 80305; 84703; 85027; 86850; 86900; 86901; 87804 ×2; 88304; 87635; 96376; 96365; 81001; J3490 ×2; J2270; J7030 ×2; J1630; J2405; Q9967; G0378; J7120; A4215; J3010 ×2; J1100; J2250; J2704; J2543 ×3; J0665 ×2; J2175; J1171 ×2; A6206; A4649 ×3; A4223; A4222; L0625; A4600